=== PATIENT | female | born 1975 | race Caucasian/White ===

== ENCOUNTER 2018-06-04 07:51 | Outpatient (CLI) | payer MEDICAID, SELFPAY ==
[2018-06-04 08:44] LABS: Abs Immature Grans 0.02 k/cumm (0.0-0.09); Absolute Basophil Count 0.06 k/cumm (0.0-0.2); Absolute Eosinophil Count 0.11 k/cumm (0.0-0.7); Absolute Lymphocyte Count 3.18 k/cumm (1.2-3.4); Absolute Monocyte Count 0.78 k/cumm (0.11-0.7); Absolute Neutrophil Count 3.79 k/cumm (1.2-6.7); Basophils % 0.8; Eosinophils % 1.4; HCT 42.1 % (36.0-46.0); HGB 14.2 g/dL (12.0-15.5); Immature Grans % 0.3; Lymphocytes % 40.1; Mean Corp. HGB Concentration 33.7 g/dL (32.0-36.0); Mean Corpuscular Hemoglobin 31.6 pg (27.0-33.0); Mean Corpuscular Volume 93.6 fL (80-95); Mean Platelet Volume 8.6 fL (8.0-11.0); Monocytes % 9.8; Neutrophils % 47.6; Platelet Count 276 x1000/uL (130-400); RBC Distribution Width 13.9 % (11.7-14.6); White Blood Cell Count 7.94 k/cumm (4.4-10.8)
[2018-06-04 12:41] LABS: ALT 28 U/L (12-78); AST 19 U/L (15-37); Albumin 3.3 g/dL (3.4-5.0); Alkaline Phosphatase 82 U/L (46-116); Anion Gap 7.9 mmol/L (3-11); BUN 6 mg/dL (7-18); Bilirubin, Total 0.3 mg/dL (0.2-1.0); CO2 26.1 mmol/L (21.0-32.0); CREATININE 1.02 mg/dL (0.55-1.02); Calcium 8.5 mg/dL (8.5-10.1); Chloride 106 mmol/L (98-107); Cholesterol 170 mg/dL (50-200); Estimated GFR 59.72 (mL/min/1.73m2); Glucose 98 mg/dL (70-100); HDL Cholesterol 40 mg/dL (40-60); LDL CHOLESTEROL 117 mg/dL (<100); Potassium 4.5 mmol/L (3.5-5.1); Sodium 140 mmol/L (136-145); Total Protein 6.6 g/dL (6.4-8.2); Triglyceride 124 mg/dL (30-150)
[2018-06-05 14:39] LABS: HIV-1 RNA Quantification Undetected copies/mL (UNDECT)
== END 2018-06-04 08:11 ==
PROVIDERS: PCP Nurse Practitioner Family; Referring Provider Internal Medicine Infectious Disease; Visit Provider Nurse Practitioner Family
DX: Z21 Asymptomatic human immunodeficiency virus [HIV] infection status (principal); Z79.899 Other long term (current) drug therapy
CPT/HCPCS: 36415; 80053; 80061; 83721; 87536; 85025

== ENCOUNTER 2018-06-09 15:09 | Outpatient (CLI) | payer MEDICAID, SELFPAY | END 2018-06-09 15:29 | PROVIDERS: PCP Nurse Practitioner Family; Referring Provider Nurse Practitioner Family; Visit Provider Internal Medicine Infectious Disease | DX: B20 Human immunodeficiency virus [HIV] disease (principal); Z79.899 Other long term (current) drug therapy; Z23 Encounter for immunization | CPT/HCPCS: 90471; 90472; 90632; 90686; 99215 ==

== ENCOUNTER 2018-12-01 08:00 | Outpatient (CLI) | payer MEDICAID, SELFPAY | END 2018-12-01 08:20 | PROVIDERS: PCP Nurse Practitioner Family; Referring Provider Nurse Practitioner Family; Visit Provider Internal Medicine Infectious Disease | DX: B20 Human immunodeficiency virus [HIV] disease (principal); Z79.899 Other long term (current) drug therapy | CPT/HCPCS: 99215 ==

== ENCOUNTER 2018-12-01 15:11 | Outpatient (CLI) | payer MEDICAID, SELFPAY ==
[2018-12-03 12:52] LABS: Hepatitis C Ab w Rflx HCV PCR Negative (NEGAT)
[2018-12-03 13:01] LABS: Syphilis Serology (RPR) Negative (Negative)
[2018-12-03 14:05] LABS: HSV Type 1 Ab, IgG Positive; HSV Type 2 Ab, IgG Positive
== END 2018-12-01 15:31 ==
PROVIDERS: PCP Nurse Practitioner Family; Visit Provider Nurse Practitioner Family
DX: B20 Human immunodeficiency virus [HIV] disease (principal); Z79.899 Other long term (current) drug therapy; Z72.51 High risk heterosexual behavior
CPT/HCPCS: 36415; 86803; 86592; 86695; 86696

== ENCOUNTER 2019-07-13 09:30 | Outpatient (CLI) | payer MEDICAID, SELFPAY | END 2019-07-13 09:50 | PROVIDERS: Referring Provider Nurse Practitioner Family; Visit Provider Internal Medicine Infectious Disease | DX: B20 Human immunodeficiency virus [HIV] disease (principal); Z79.899 Other long term (current) drug therapy | CPT/HCPCS: 99215 ==

== ENCOUNTER 2019-09-07 13:30 | Outpatient (CLI) | payer MEDICAID, SELFPAY ==
--- NOTE | 2019-09-07 15:52 | W.CCNOTE ---
Date of service: 09/07/19 Time of Service: 13:52 [facility] Note Note: [facility] [id number] [place] [address] [facility] Follow Up Visit Name: Maricel Prieto Date of : 1975 Date of Service: 09/07/2019 SUBJECTIVE: Maricel comes today stating that she is over all feeling well physically and has been taking her medications as ordered without missing. He sexual partner refuses to use condoms and that as well as her recent discovery that her neighbor is doing IV Heroin has her upset and feeling anxious. She came to discuss what she can do to help both of them. She also has not had a flu shot and I remind her she needs to have this. She is willing to have it today. ROS: Denies fever, chills, night sweats, URI symptoms, GI is fine, No neuro symptoms, Denies mood swings and feels her bi-polar disease is under control without medications except daily pot smoking. She denies HI/SI Update Past Medical/Surgical/Psychiatric History: She has been HIV positive since 2013 and on medications since diagnosis. She did have psychiatric care when she was living in [place] at time homeless. Allergies/Sensitivities: She has NKDA but says she is sensitive to codeine ? stomach issues Current Medications: Odefsey ? emtricitabine ? 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 ETOH: Daily/Weekly? Type: Amount: none Illicit Drug Use: If + Type(s): Amount: Denies ? does smoke MJ daily RX Drug Dependence: if + Type(s) Amount: Denies IVDU Hx? never Other Psychosocial Considerations: Lives with her sig other who is ?on the spectrum and plays video games all day? - SSDI Update Family History: Nothing new. Not living with her Mother or Father. Mother in [employer] a advanced complications of DM Immunization History: Tetanus (DPT/dT/dTp/TDAP) UTD Hepatitis A Series #1, #2; Hepatitis B Series: #1, #2, #3, Twinrix #1, #2, #3 UTD Flu Vaccine: Needs Pneumovax: #1, 2013 #2; needs, Prevnar 13 #1 Has had Other: Menactra Health Maintenance/ID Screening: PPD: CXR: negative 2 years ago PAP: Cervical: Due Mammograms: Due Colonoscopy: NA OBJECTIVE Temp: 97.8 Pulse: 78 Resp: 16 BP: 126/72 General: AAOx4, AINAD, Obese Skin: W/D no rash + tattoos ? none new Eyes: non icteric, PEERL Cardiac: RRR no MCRG Extremities: No edema Neuro: No tremor, gait strong/steady Psych: : Appearance: well groomed Eye Contact: good Attitude: cooperative Speech: normal Affect: appropriate Mood: euthymic Memory: short-term intact, long-term intact Self-Perception: wnl Motor Activity: normal Orientation: intact Attention: intact Thought Process: logical Thought Content: wnl Perceptions: wnl Judgement: intact Insight: good ASSESSMENT/PLAN: 1. HIV ? stable w medications, will be due for blood work in about a month and F/U w MD in October. No change in medication, encouraged to continue to take the medications as RXd. Advised to avoid vaginal. And/or anal sex without a condom but also keeping her viral load to undetectable will also help to prevent passing the virus to her sig other. He should be tested. She will try to convince him to come here for testing. 2. Anxiety and fear about finding her neighbor Odd. I have given her 2 doses of Narcan as supplied by the [facility] and information on it?s use. She can tell her neighbor that treatment is available and I have given her names and numbers for treatment centers. Also the needle exchange that is at [facility] is available to keep injecting safe until they are ready to go to treatment. She understand there is little she can do other than be encouraging but it is up to the person to decide to get help. 3. Health Maintenance: Flu vaccine and Pneumovax ? 23 #2 given today. Encouraged to see PCP or [facility] for PAP and to schedule Mammograms. MD visit scheduled: November 09, 2019 Lab Work: To be done in about a month ASO referral: Has been seen by [facility] Provider of Care: Lisa Light NP
== END 2019-09-07 13:50 ==
PROVIDERS: Visit Provider Nurse Practitioner Family
DX: B20 Human immunodeficiency virus [HIV] disease (principal); Z79.899 Other long term (current) drug therapy; Z23 Encounter for immunization; F41.9 Anxiety disorder, unspecified
CPT/HCPCS: 90471; 90472; 90686; 99213; 90732

== ENCOUNTER 2019-10-18 15:25 | Emergency (ER) | payer MEDICAID, SELFPAY ==
[2019-10-18 15:28] VITALS: BP 129/56; PULSE 104; TEMP 36.5; O2SAT 92
[2019-10-18 15:34] VITALS: RESP 18
[2019-10-18] MEDS: Albuterol/Ipratropium 3 ML UPD VIAL UPD (16:00)
--- NOTE | 2019-10-18 16:19 | W.ED.GENAD ---
Discharge Plan Disposition Patient Disposition: HOME Condition: Improving Discharge Details Chief Complaint: GenMedical Clinical Impression: Viral illness, Acute asthma exacerbation, Current smoker Primary Care Provider: Unknown,Unknown ED Provider: Cheko Sutton Home Meds and New Rx's Prescriptions: New prednisone 20 mg tablet 40 mg PO DAILY Qty: 8 RF: 0 Continued Complera 1 EACH tablet 1 ea PO DAILY RF: 0 albuterol sulfate [ProAir HFA] 200 PUFF HFA aerosol inhaler 8.5 gm Inhalation PRN PRNRF: 0 No Action ranitidine HCl 150 MG tablet 150 mg PO DAILY Qty: 90 RF: 0 Discharge Instructions Instructions: Asthma (ED), How to Stop Smoking (ED), Viral Syndrome (ED) Additional Instructions: Please follow-up with your primary care physician. Call tomorrow to arrange timely follow-up. Be sure to follow-up on the results of your diagnostic lab testing with your primary care physician. Results are pending at time of discharge from the emergency department. Please drink plenty of fluids to stay hydrated. Use albuterol inhaler, 2 puffs every 4-6 hours as needed for wheezing or shortness of breath. Be sure to use spacer with the inhaler. Return to the ER for any worsening or new concerning symptoms. Referrals: Lisa Light NP [NURSE PRACTITIONER] - Medical Decision Making 16:15 --44-year-old female with history of HIV, on antiretrovirals which she has been taking as prescribed, smoker with intermittent asthma, here generally not feeling well with cough, sore throat, myalgias and loose stool. Patient does have shortness of breath. Mild wheeze and diminished breath sounds bilaterally. Suspect viral illness with asthma/COPD exacerbation. Plan to give DuoNeb treatment and will initiate treatment with prednisone 60 mg orally. Consider influenza although patient did get flu shot this year. Will attempt to obtain outside hospital records. Apparently patient had CD4 count and viral load performed at [facility] last year. Consider immunosuppression from HIV. I will check CD4 count and viral load. Patient is mildly tachycardic and has had loose stool. I do worry about mild dehydration. I will give LR 1 L IV bolus. 17:44 --chest x-ray reviewed and interpreted by me: No consolidation Labs reviewed and nondiagnostic. Influenza negative. CD4 count and viral load are pending. I was able to obtain outside hospital records from [facility] that revealed absolute CD4 count of 1533 and viral load on 11/18/2018. Patient was reassessed and notes that she feels much better. Wheeze completely resolved. Lungs now clear to auscultation bilaterally. Suspect viral syndrome with asthma exacerbation. Smoking cessation counseling was provided >6 min. Plan to treat with albuterol inhaler. I will provide this and spacer as patient does not currently have any at home. Also will continue prednisone burst for total of 5 days. I discussed initiating treatment with antibiotics for bronchitis and patient provided informed refusal. She understands importance of timely follow-up with her primary care physician and that she would need additional treatment should symptoms persist or worsen. She also understands that labs are pending at this time including HIV viral load and CD4 count and she plans to follow-up with her HIV specialist this week regarding these labs. HPI General Mode of arrival: ambulatory. Date/Time Provider Initiated Documentation: 10/18/19 15:33. Limitations to Documentation: no limitations. Information obtained by: patient. HPI Narrative: 48-year-old female with history of chronic smoking, mild, intermittent asthma, HIV compliant on antiretrovirals with normal CD4 count and undetectable viral load as of last year per patient, here with chief complaint of generally not feeling well. Patient notes symptoms are moderate to severe and persistent over the past 4 days. Patient notes cough, shortness of breath - trouble getting air in, sore throat, loose stool, and fatigue. No associated chest pain. No leg swelling. No recent travel. Related Data Home Medications Medication Instructions Recorded Confirmed Complera 1 ea PO DAILY 09/13/14 10/18/19 albuterol sulfate [ProAir HFA] 8.5 gm INHALATION PRN PRN 06/27/15 10/18/19 ranitidine HCl 150 mg PO DAILY #90 tab-cap 07/03/17 10/18/19 prednisone 40 mg PO DAILY #8 tab 10/18/19 Previous Rx's Medication Instructions Recorded ranitidine HCl 150 mg PO DAILY #90 tab-cap 07/03/17 prednisone 40 mg PO DAILY #8 tab 10/18/19 Allergies Allergy/AdvReac Type Severity Reaction Status Date / Time codeine AdvReac Intermediate Vomiting Unverified 10/18/19 15:32 General Stated Complaint: GenMedical OMER: 3 Review of Systems Constitutional Constitutional: Reports as per HPI, Reports body ache(s), Reports fatigue and Denies fever(s) Cardiovascular Cardiovascular: Reports dyspnea Respiratory Respiratory: Reports cough and Reports dyspnea Gastrointestinal Gastrointestinal: Denies abdominal pain Endocrine Endocrine: Reports fatigue [facility] Medical History Anemia Asthma Bipolar disorder Cannibus use Continous Carpal tunnel syndrome S/p B/L surgery GERD (gastroesophageal reflux disease) HIV (human immunodeficiency virus infection) followed by [facility] [place], on Complera HSV 1 and 2 OCD (obsessive compulsive disorder) Poor dentition Smoker Surgical History Dilation and curettage 1995 Endoscopic Carpal Tunnel release (09/11/17) B/L. [facility] Dr. Bates. Family History Mother Diabetes Essential hypertension Hyperlipidemia COPD (chronic obstructive pulmonary disease) Father Alcohol abuse Brother No problems noted. Grandfather No problems noted. Grandfather No problems noted. Grandmother Heart disease Paternal, od CA Grandmother Diabetes Essential hypertension Son Asperger syndrome ADHD (attention deficit hyperactivity disorder) Daughter Learning disorder Asthma 1/2 Brother No problems noted. Social History Smoking/Tobacco Use Status: Current every day Tobacco Type: cigarettes Alcohol Intake: never Drug use: Occasionally Substance use type: marijuana Do you feel safe at home: Yes Do you feel safe in your relationship?: Yes Exam Const General: cooperative and no acute distress HENMT Mouth: moist mucous membranes Other: Unable to examine posterior oropharynx as patient did not tolerate tongue depressor and refuses further examination Eyes Conjunctivae: normal conjunctivae Sclera: normal sclerae Neck Neck: no lymphadenopathy, trachea midline, supple and no JVD Resp Effort & Inspection: able to speak in complete sentences, cough, not labored, no respiratory distress and not tachypneic Auscultation: diminished lung sounds bilaterally, no rales, no rhonchi and wheezes expiratory wheezes (Faint bilateral) Cardio Jugular venous pressure: no JVD Rate: tachycardic (100) Rhythm: regular rhythm GI Palpation: soft, not firm, no guarding, no masses, not rigid and nontender Skin General skin exam: no rashes or lesions noted Neuro General: alert, awake, oriented x3 and tone normal Extrem General: no edema Psych Appearance: grossly normal Mental Status: mental status grossly normal Course Vital Signs Vital signs: Vital Signs Temperature 36.5 C 10/18/19 15:28 Pulse 104 H 10/18/19 15:28 Blood Pressure 129/56 L 10/18/19 15:28 Pulse Oximetry 92 L 10/18/19 15:28 Temperature 36.5 C 10/18/19 15:28 Temperature Source Temporal Artery Scan 10/18/19 15:28 Pulse 104 H 10/18/19 15:28 Respiratory Rate 18 10/18/19 15:34 Respiratory Effort Non-Labored 10/18/19 15:34 Respiratory Depth Normal 10/18/19 15:34 Respiratory Pattern Normal 10/18/19 15:34 Blood Pressure 129/56 L 10/18/19 15:28 Pulse Oximetry 92 L 10/18/19 15:28 Oxygen Delivery Method Room Air 10/18/19 15:28 Oxygen Flow Rate 0 10/18/19 15:28 Pain Level 0 10/18/19 15:28 Lab/Test Results Lab/Test Results: 10/18/19 15:41 Nasopharynx Influenza Types A,B Antigen - Final
[2019-10-18 16:36] LABS: Abs Immature Grans 0.02 k/cumm (0.0-0.09); Absolute Basophil Count 0.04 k/cumm (0.0-0.2); Absolute Eosinophil Count 0.12 k/cumm (0.0-0.7); Absolute Lymphocyte Count 2.08 k/cumm (1.2-3.4); Absolute Monocyte Count 0.72 k/cumm (0.11-0.7); Absolute Neutrophil Count 6.88 k/cumm (1.2-6.7); Basophils % 0.4; Eosinophils % 1.2; HCT 44.1 % (36.0-46.0); HGB 15.3 g/dL (12.0-15.5); Immature Grans % 0.2 %; Lymphocytes % 21.1; Mean Corp. HGB Concentration 34.7 g/dL (32.0-36.0); Mean Corpuscular Hemoglobin 31.7 pg (27.0-33.0); Mean Corpuscular Volume 91.5 fL (80-95); Mean Platelet Volume 8.6 fL (8.0-11.0); Monocytes % 7.3; Neutrophils % 69.8; Platelet Count 282 x1000/uL (130-400); RBC 4.82 m/cumm (4.00-5.20); RBC Distribution Width 13.5 % (11.7-14.6); White Blood Cell Count 9.86 k/cumm (4.4-10.8)
[2019-10-18 16:48] LABS: ALT 25 U/L (14-59); AST 20 U/L (15-37); Albumin 3.6 g/dL (3.4-5.0); Alkaline Phosphatase 76 U/L (46-116); Anion Gap 10.3 mmol/L (3-11); BUN 7 mg/dL (7-18); Bilirubin, Total 0.4 mg/dL (0.2-1.0); CO2 25.7 mmol/L (21.0-32.0); CREATININE 1.07 mg/dL (0.55-1.02); Calcium 8.8 mg/dL (8.5-10.1); Chloride 104 mmol/L (98-107); Estimated GFR 55.97 (mL/min/1.73m2); Glucose 127 mg/dL (74-106); Potassium 3.8 mmol/L (3.5-5.1); Sodium 140 mmol/L (136-145); Total Protein 7.6 g/dL (6.4-8.2)
[2019-10-18] MEDS: Lactated Ringers 1,000 ML 1000 ML IV (16:48)
[2019-10-18] MEDS: Normal Saline Flush 10 ML SYR IVP (16:49)
[2019-10-18] MEDS: predniSONE 20 MG TAB 60 MG PO (16:49)
--- NOTE | 2019-10-18 17:06 | DI.RAD_ITS ---
EXAM: XR CHEST 2V PA LATERAL CLINICAL HISTORY: cough, hiv. TECHNIQUE: 2D digital imaging was performed. COMPARISON: ABD FLAT UPRIGHT PA CHEST from 09/08/2015 FINDINGS: LUNGS: Clear. No pleural abnormality seen. HEART: Normal. MEDIASTINUM: Normal. OTHER FINDINGS:Normal. BONE:Normal. IMPRESSION: No acute pulmonary findings. DATA REPOSITORY: RADIATION DOSE DELIVERED:
--- NOTE | 2019-10-18 17:54 | DI.VRAD_ITS ---
PROCEDURE INFORMATION: Exam: XR Chest, 2 Views Exam date and time: 10/18/2019 4:13 PM Age: 44 years old Clinical indication: Patient HX: Cough/hiv TECHNIQUE: Imaging protocol: XR of the chest Views: 2 views. COMPARISON: CR ABD FLAT UPRIGHT PA CHEST 09/08/2015 1:54 AM FINDINGS: Lungs: Unremarkable. No consolidation. Pleural space: Unremarkable. No pleural effusion. No pneumothorax. Heart/Mediastinum: Unremarkable. No cardiomegaly. Bones/joints: Degenerative changes of the thoracic spine without acute osseous abnormality. Mild curvature thoracic spine apex right. IMPRESSION: No evidence of active pulmonary disease. Dictated and Authenticated by: Christo Sánchez MD. Ordering:OMAR Still MD
[2019-10-22 14:14] LABS: CD3 87 % (62-87); CD4 47 % (35-63); CD8 49 % (10-35)
[2019-10-22 14:47] LABS: HIV-1 RNA Quantification 0 copies/mL (Undetected)
[2019-10-29 01:09] VITALS: BP 129/56; PULSE 104; RESP 18; TEMP 36.5; O2SAT 92
== END 2019-10-18 17:55 | disposition home or self-care (01) ==
PROVIDERS: Emergency Provider Student in an Organized Health Care Education/Training Program
DX: J45.901 Unspecified asthma with (acute) exacerbation (principal); B34.9 Viral infection, unspecified; E86.0 Dehydration; F17.210 Nicotine dependence, cigarettes, uncomplicated; B20 Human immunodeficiency virus [HIV] disease
CPT/HCPCS: 80053; 87449; 87536; 94640; 96360; 99284; 99406; 71046; 85025; 86359; 86360; J7512; J7620

== ENCOUNTER 2020-10-18 03:18 | Outpatient (CLI) | payer MEDICAID, SELFPAY ==
[2020-10-18 12:56] LABS: Abs Immature Grans 0.02 10^3/uL (0.0-0.06); Absolute Basophil Count 0.07 10^3/uL (0.0-0.2); Absolute Eosinophil Count 0.14 10^3/uL (0.0-0.7); Absolute Neutrophil Count 3.06 10^3/uL (1.2-6.7); Basophils % 0.9; Eosinophils % 1.7; HCT 44.1 % (36.0-46.0); HGB 15.2 g/dL (11.2-15.7); Immature Grans % 0.2; Lymphocytes % 51.3; MCH 32.1 pg (27.0-33.0); MCHC 34.5 % (32.0-36.0); MCV 93.2 fL (80-95); Monocytes % 8.5; Neutrophils % 37.4; Nucleated RBC 0 %; Platelet Count 272 10^3/uL (130-400); RBC 4.73 10^6/uL (3.93-5.22); RDW 13.2 % (11.7-14.6); RDW-SD 45.2 fL; WBC 8.19 10^3/uL (4.4-10.8)
[2020-10-18 13:11] LABS: Hemoglobin A1C 5.8 % (<5.7)
[2020-10-18 13:46] LABS: Diff Comment Diff Reviewed; RBC Morphology Normal
[2020-10-18 13:59] LABS: ALT 23 U/L (14-59); AST 16 U/L (15-37); Albumin 3.7 g/dL (3.4-5.0); Alkaline Phosphatase 75 U/L (46-116); Anion Gap 7.5 mmol/L (3-11); BUN 10 mg/dL (7-18); Bilirubin, Total 0.5 mg/dL (0.2-1.0); CO2 26.5 mmol/L (21.0-32.0); Calcium 8.7 mg/dL (8.5-10.1); Calculated LDL 100 mg/dL (<100); Chloride 105 mmol/L (98-107); Cholesterol 178 mg/dL (<200); Glucose 128 mg/dL (74-106); HDL Cholesterol 39 mg/dL (40-60); Potassium 4.4 mmol/L (3.5-5.1); Sodium 139 mmol/L (136-145); TSH 1.92 uIU/mL (0.36-3.74); Total Protein 7.3 g/dL (6.4-8.2); Triglyceride 197 mg/dL (<150)
[2020-10-18 14:33] LABS: HCG Qual (Urine) Negative
[2020-10-18 23:02] LABS: FSH 2.4 mIU/mL (See Note)
[2020-10-19 10:26] LABS: Syphilis Serology (RPR) Negative (Negative)
[2020-10-19 11:10] LABS: Hepatitis C Ab w Rflx HCV PCR Negative (Negative)
[2020-10-19 17:05] LABS: CD3 86 % (62-87); CD4 47 % (35-63); CD8 51 % (10-35)
[2020-10-20 14:43] LABS: HIV 1 RNA Qualitative Undetected copies/mL (Undetected)
[2020-10-21 15:05] LABS: TB Interpretation Negative (Negative); TB1 Ag minus Nil 0.02 IU/ml; TB2 Ag minus Nil 0.01 IU/mL
== END 2020-10-18 03:19 | disposition home or self-care (01) ==
LOC: LBO 03:18
PROVIDERS: PCP Internal Medicine Infectious Disease; Visit Provider Internal Medicine Infectious Disease
DX: B20 Human immunodeficiency virus [HIV] disease (principal); Z79.899 Other long term (current) drug therapy; E66.9 Obesity, unspecified; Z72.51 High risk heterosexual behavior
CPT/HCPCS: 36410; 36415; 80053; 80061; 86803; 87491; 87536; 87591; 81025; 83001; 83036; 84443; 85025; 86359; 86360; 86480; 86592